=== PATIENT | female | born 1990 | race Caucasian/White ===

== ENCOUNTER 2020-05-19 14:36 | Emergency (ER) | payer SELFPAY ==
[~2020-05-19] VITALS: Ht 154.9 cm; Wt 53.5 kg
[2020-05-19 15:17] VITALS: Ht 154.9 cm; Wt 53.5 kg
[2020-05-19 16:14] VITALS: BP 121/70
== END 2020-05-19 16:14 | disposition home or self-care (01) ==
LOC: ED 14:36
DX: J02.9 Acute pharyngitis, unspecified (principal); Z20.828 Contact with and (suspected) exposure to other viral communicable diseases
CPT/HCPCS: U0003